=== PATIENT | female | born 1990 | race Caucasian/White ===

== ENCOUNTER → 2022-11-10 | Outpatient (CLI) | payer SELFPAY ==
[2022-11-10 13:48] LABS: hCG Titer Quant., Serum 11934 mIU/mL (1-3)
== END | disposition home or self-care (01) ==
PROVIDERS: Referring Provider Obstetrics & Gynecology; Visit Provider Obstetrics & Gynecology
DX: O20.0 Threatened abortion (principal)
CPT/HCPCS: 36415; 84702; 86850; 86900; 86901

== ENCOUNTER 2023-12-14 22:29 | Emergency (ER) | payer SELFPAY ==
[2023-12-14 22:29] VITALS: PULSE 115; RESP 20; TEMP 36.2; O2SAT 97; BMI 47.4
[2023-12-14 22:31] VITALS: BP 152/87
--- NOTE | 2023-12-14 22:39 | EX.ED.VIS.UR ---
HPI HPI - URI History of Present Illness Chief Complaint: Sore Throat Narrative Narrative: 33-year-old female past medical history of diabetes and hypertension presents with upper respiratory infection type symptoms that she has had since Thursday, 4 days ago. She had a fever, then developed cough, and runny nose along with sore throat. Right now she states that her throat hurts more when she swallows, and has her worst symptom. It even hurts when she tries to swallow. She may feel mildly short of breath as well. She and her boyfriend states that they tested her, she was negative for COVID. She denies any recent sick contacts however or known exposure to strep throat. ROS ROS ED ROS Narrative Constitutional: Positive fever, no chills. HEENT: Positive sore throat. No neck pain. No loss of vision. Positive rhinorrhea. Cardiovascular: No chest pain. No palpitations. No pedal edema. Respiratory: Positive cough, mild shortness of breath. Abdominal: No abdominal pain. No nausea. No vomiting. Genitourinary: No dysuria. No hematuria. Musculoskeletal: No myalgias. No arthralgias. Neurologic: No headaches. No dizziness. Positive lightheadedness. Skin: No rash. No change in color. Psychiatric: No depression. No anxiety. PFSH PFS Medical History Anxiety with depression Hypertension Type 2 diabetes mellitus Home Medications fluoxetine 20 mg capsule (Prozac) 20 mg PO DAILY 11/10/22 [History Last Taken Unknown] hydrochlorothiazide 25 mg tablet 25 mg PO DAILY 11/10/22 [History Last Taken Unknown] metformin 500 mg tablet 500 mg PO BID 11/10/22 [History Last Taken Unknown] desogestrel 0.15 mg-ethinyl estradiol 0.03 mg tablet (Apri) 1 tab PO QDAY #28 tabs 11/17/22 [Rx Last Taken Unknown] Allergy/AdvReac Type Severity Reaction Status Date / Time No Known Allergies Allergy Unverified 11/10/22 15:39 Family History Grandmother Diabetes Social History Smoking Status: Never smoker details: social substance use type: marijuana seatbelt use: always do you feel safe at home: Yes additional social history: [employer] - boyfriend EXAM Physical Exam Narrative Exam Narrative: Afebrile. Vital signs noted. Nontoxic-appearing. HEENT: Normocephalic. Atraumatic. PERRL, EOMI. Neck soft and supple. No point tenderness or step off. Airway patent. Mild pharyngeal erythema. No drooling or trismus. No noted tonsillar exudate. Shotty anterior lymphadenopathy, cervical. Cardiovascular: Positive tachycardia. No murmurs, rubs, or gallops appreciated. Respiratory: No tachypnea. Lungs clear to auscultation bilaterally. Moving a good amount of air. Gastrointestinal: Abdomen soft, nontender, with normoactive bowel sounds. No rebound or guarding. Neurological: Awake. Alert. Nonfocal, nonlateralizing. Ambulates without difficulty in the emergency department. Skin: No rash. Normal color. No pallor. Musculoskeletal: No pedal edema. Full range of motion extremities. Const Vital Signs: 12/14/23 22:29 12/14/23 22:31 Temperature 97.2 F L Temperature Source Temporal Pulse Rate 115 H Respiratory Rate 20 H Blood Pressure 152/87 H Blood Pressure Mean 108 Pulse Ox 97 Oxygen Delivery Method Room Air MDM MDM MDM Narrative Medical decision making narrative: In the differential diagnosis is strep pharyngitis versus viral syndrome from COVID, influenza, and/or RSV. He could have common infection as well. I do not feel that chest x-ray is indicated as her pulse ox is 97% on room air and her lungs are clear to auscultation bilaterally. She states her worst symptom is the sore throat. She was swabbed for strep, as well as COVID, influenza, and RSV. As she is negative for strep, I do not feel antibiotics are indicated. Her respiratory swab was reviewed she is positive for influenza B. As she has a sore throat and pharyngitis she was given 1 dose of Decadron 8 mg orally here. She will drink plenty of oral fluids. She was given a note to be off work for the next few days. I feel she can be discharged safely home with follow-up. Return instructions to the emergency department were reviewed. Disposition is discharged home in stable condition. Lab Data Attestation: I reviewed the patient's lab results. Labs: Strep negative. Positive for influenza B. Discharge Plan Triage Chief Complaint: Sore Throat ED Provider: Marc Echeverria Dx/Rx/DC Orders Clinical Impression: Viral syndrome, Pharyngitis, Influenza B Instructions: ED Influenza (Adult), ED Viral Syndrome (Adult) Prescriptions: No Action metformin 500 mg tablet 500 mg PO BID hydrochlorothiazide 25 mg tablet 25 mg PO DAILY fluoxetine [Prozac] 20 mg capsule 20 mg PO DAILY desogestrel-ethinyl estradiol [Apri] 0.15-0.03 mg tablet 1 tab PO QDAY Qty: 28 12RF Stand Alone Forms: ED Work / School Excuse Primary Care Provider: Care Physician,No Primary Referrals: Sami Goff MD [Med Staff - Tempering Kiln Tender] - 1 Week if not improving NOT,DEFINED [Non-Staff] - Activity Restrictions/Additional Instructions: Drink plenty of oral fluids.Drink plenty of oral fluids. Tylenol or ibuprofen as needed for pain. Disposition Disposition: Home, Self Care
[2023-12-14 23:59] VITALS: BP 131/99; PULSE 117; RESP 16; TEMP 37.9; O2SAT 94
[2023-12-14] MEDS: dexAMETHasone 4 MG Tablet 8 MG PO (23:59)
[2023-12-15 00:02] VITALS: BP 131/99; PULSE 117; RESP 16; TEMP 37.9; O2SAT 94
== END 2023-12-15 00:03 | disposition home or self-care (01) ==
PROVIDERS: Emergency Provider Emergency Medicine; Visit Provider Emergency Medicine
DX: J10.1 Influenza due to other identified influenza virus with other respiratory manifestations (principal); E11.9 Type 2 diabetes mellitus without complications; I10 Essential (primary) hypertension
CPT/HCPCS: 87631; 87651; 99282

== ENCOUNTER 2024-03-24 12:29 | Emergency (ER) | payer MEDICAID, SELFPAY ==
[2024-03-24 12:29] VITALS: BP 175/85; PULSE 91; RESP 14; TEMP 36.1; O2SAT 97; BMI 47.8
--- NOTE | 2024-03-24 12:57 | EX.ED.DYSGE1 ---
HPI <HOME Palmer - Last Filed: 03/24/24 15:43> History of Present Illness Chief Complaint: Chest Pain Narrative Narrative: Patient is a 33-year-old female with history of obesity, bipolar who is currently on antibiotics for a cyst to the front scalp presenting to the emergency department for chest pain, left arm pain, back pain. Patient has been ongoing for 2 weeks intermittently. Patient did see her doctor on Thursday, the doctor did put her on antibiotics and the new depression medication. Patient does see a analytic programmer for the cyst on 31 March. Patient has a cyst has been there for multiple years however over the last 3 months is getting bigger. Patient denies any fevers, does have subjective chills. Patient is asymptomatic at this time. She is here for evaluation. PFSH <HOME Palmer - Last Filed: 03/24/24 15:43> [facility] Medical History Anxiety with depression Hypertension Type 2 diabetes mellitus Home Medications ?Medication ?Instructions ?Recorded ?Last Taken ?Type fluoxetine 20 mg capsule (Prozac) 20 mg PO DAILY 11/10/22 Unknown History hydrochlorothiazide 25 mg tablet 25 mg PO DAILY 11/10/22 Unknown History metformin 500 mg tablet 500 mg PO BID 11/10/22 Unknown History desogestrel 0.15 mg-ethinyl 1 tab PO QDAY #28 tabs 11/17/22 Unknown Rx estradiol 0.03 mg tablet (Apri) Allergy/AdvReac Type Severity Reaction Status Date / Time No Known Allergies Allergy Verified 03/24/24 12:29 Family History Grandmother Diabetes Social History Smoking Status: Never smoker details: social substance use type: marijuana seatbelt use: always do you feel safe at home: Yes additional social history: [employer] - boyfriend ROS <HOME Palmer - Last Filed: 03/24/24 15:43> ROS ED ROS Narrative Constitutional: Negative for fever, weight loss, weakness. Positive for chills Eyes: Negative for vision loss, vision change, double vision ENT: Negative for any sore throat, ear pain, congestion Cardiovascular: Negative for any palpitations. Positive chest pain, tightness Respiratory: Negative for any cough, sputum production, hemoptysis, dyspnea, dyspnea on exertion, orthopnea Gastrointestinal: Negative for any abdominal pain, vomiting, diarrhea, constipation, blood in stool, blood in vomit. Positive for nausea : Negative for any urinary frequency, dysuria, retention, blood in urine Muscle skeletal: Negative for any neck pain, back pain Neurological: Negative for any headache, syncope, dizziness Skin: Negative for any rashes, itching, abrasions, lacerations Psychiatric: Negative for any depression, anxiety, stress, suicidal ideation, homicidal ideation Hematologic: Negative for any excessive bruising, easy bleeding EXAM <HOME Palmer - Last Filed: 03/24/24 15:43> Physical Exam Narrative Exam Narrative: Vital signs reviewed. HEET: Head normocephalic atraumatic, TMs clear bilaterally. Posterior pharynx is clear, moist mucous membranes. Nares clear bilaterally. Patient does have a cyst that is erythematous however there is no significant cellulitis. There is fluctuance. Neck: Supple with no lymphadenopathy or tenderness. No signs of meningismus. Cardiac: Regular rate and rhythm no murmurs gallops or rubs, equal peripheral pulses bilaterally. Respiratory: Lungs clear to auscultation bilaterally. No chest tenderness. Abdomen: Soft, nontender, nondistended. No abdominal bruit or pulsatile masses. No hepatosplenomegaly Extremities: No peripheral edema, no signs of gross trauma or deformity. Active full range of motion of all extremities. Neuro: Cranial nerves II through XII intact, no focal neurological deficits. Skin: Clean dry and intact with no rash, purpura, petechiae, vesicles or pustules. Backs/flank: No CVA tenderness, no midline spinal tenderness, no deformity. Psych: Normal mood and affect. No SI, HI or acute psychosis. Const Vital Signs: 03/24/24 12:29 03/24/24 13:33 03/24/24 14:29 Temperature 97 F L Temperature Source Temporal Pulse Rate 91 77 Respiratory Rate 14 22 H Respiratory Effort Short of Breath Blood Pressure 175/85 H 122/78 H Blood Pressure Mean 115 92 Pulse Ox 97 97 Oxygen Delivery Method Room Air Room Air 03/24/24 15:54 Temperature 97.3 F L Temperature Source Pulse Rate 88 Respiratory Rate 18 Respiratory Effort Blood Pressure 152/86 H Blood Pressure Mean 108 Pulse Ox 97 Oxygen Delivery Method Positive well nourished, well developed and obese General Appearance ED: well developed Nutritional Appearance: obese <Dr. Kushal Rosado DO - Last Filed: 03/24/24 20:19> Physical Exam Const Vital Signs: 03/24/24 12:29 03/24/24 13:33 03/24/24 14:29 Temperature 97 F L Temperature Source Temporal Pulse Rate 91 77 Respiratory Rate 14 22 H Respiratory Effort Short of Breath Blood Pressure 175/85 H 122/78 H Blood Pressure Mean 115 92 Pulse Ox 97 97 Oxygen Delivery Method Room Air Room Air 03/24/24 15:54 Temperature 97.3 F L Temperature Source Pulse Rate 88 Respiratory Rate 18 Respiratory Effort Blood Pressure 152/86 H Blood Pressure Mean 108 Pulse Ox 97 Oxygen Delivery Method MDM <HOME Palmer - Last Filed: 03/24/24 15:43> [facility] Lab Data Labs: Laboratory Results - last 24 hr 03/24/24 03/24/24 13:24 14:00 WBC 10.8 RBC 4.62 Hgb 11.8 L Hct 37.7 MCV 81.6 MCH 25.5 L MCHC 31.3 L RDW Std Deviation 42.0 RDW Coeff of Ebony 14.6 Plt Count 274 MPV 12.3 H Immature Gran % (Auto) 0.400 Neut % (Auto) 69.3 Lymph % (Auto) 24.1 Harper % (Auto) 4.5 Eos % (Auto) 1.1 Baso % (Auto) 0.6 Absolute Neuts (auto) 7.5 Absolute Lymphs (auto) 2.59 Nucleated RBC % 0 Sodium 136 Potassium 3.5 Chloride 102 Carbon Dioxide 26.0 Anion Gap 8 BUN 9 Creatinine 0.65 Estim Creat Clear Calc 173.70 Est GFR (MDRD) Af Amer 135 Est GFR (MDRD) Non-Af 111 BUN/Creatinine Ratio 13.8 Glucose 116 H Calcium 10.0 Total Bilirubin 0.30 AST 13 L ALT 23 Alkaline Phosphatase 107 Troponin I High Sens < 3 L Total Protein 8.3 H Albumin 3.3 Globulin 5.0 H Albumin/Globulin Ratio 0.7 L Lipase 32 Urine Color Yellow Urine Clarity Sl. Cloudy Urine pH 6.0 Ur Specific [place] 1.020 Urine Protein 30 H Urine Glucose (UA) Normal Urine Ketones 5 H Urine Occult Blood 250 H Urine Nitrite Negative Urine Bilirubin Negative Urine Urobilinogen Normal Ur Leukocyte Esterase Negative Urine RBC 50-100 SEEN Urine WBC 0 SEEN Ur Squamous Epith Cells 0-5 SEEN Urine Bacteria 0 SEEN Urine Mucus 0 SEEN Urine Test Negative Radiography Diagnostic Testing: Clinical Impression(s) from Imaging Studies Chest X-Ray 03/24/24 13:32 IMPRESSION: Normal x-ray examination of the chest. Electronically Signed: Zachary Stuart MD at 13:47 EDT , EKG Normal sinus rhythm: Attestation: I personally reviewed and interpreted this EKG as follows: Interpretation: Sinus Rhythm Comments: Normal sinus rhythm, rate of 80 bpm, VA 142 ms, QRS duration 98 ms, no acute ST elevation, no acute infarct noted. Treatment and Re-Evaluation :: Differential diagnosis includes however is not limited to: Acute cholecystitis, cholelithiasis, choledocholithiasis, ACS, OR, anxiety Patient appears to be in no obvious distress vital signs are stable. Presenting to the emergency department with complaints of chest pain, left arm pain, diaphoresis after eating. Patient that she had 2-3 episodes of this. She is here for evaluation. Patient received cardiac workup, as well as upper belly labs. IV fluids given. Asymptomatic at this time. Patient's laboratory values showed normal CBC, patient's chemistries were unremarkable, troponin was negative, lipase was negative. Patient's chest x-ray shows no acute process. Urinalysis did show 50-100 red blood cells however patient is on her menstrual cycle. At this time, do not believe there is any acute surgical emergency, is no evidence of any ACS or OR. I do believe the patient be stable to be discharged to follow-up outpatient. She is agreeable with the plan, all questions were answered, patient stable for discharge. <Dr. Kushal Rosado, DO - Last Filed: 03/24/24 20:19> [facility] Lab Data Labs: Laboratory Results - last 24 hr 03/24/24 03/24/24 13:24 14:00 WBC 10.8 RBC 4.62 Hgb 11.8 L Hct 37.7 MCV 81.6 MCH 25.5 L MCHC 31.3 L RDW Std Deviation 42.0 RDW Coeff of Ebony 14.6 Plt Count 274 MPV 12.3 H Immature Gran % (Auto) 0.400 Neut % (Auto) 69.3 Lymph % (Auto) 24.1 Harper % (Auto) 4.5 Eos % (Auto) 1.1 Baso % (Auto) 0.6 Absolute Neuts (auto) 7.5 Absolute Lymphs (auto) 2.59 Nucleated RBC % 0 Sodium 136 Potassium 3.5 Chloride 102 Carbon Dioxide 26.0 Anion Gap 8 BUN 9 Creatinine 0.65 Estim Creat Clear Calc 173.70 Est GFR (MDRD) Af Amer 135 Est GFR (MDRD) Non-Af 111 BUN/Creatinine Ratio 13.8 Glucose 116 H Calcium 10.0 Total Bilirubin 0.30 AST 13 L ALT 23 Alkaline Phosphatase 107 Troponin I High Sens < 3 L Total Protein 8.3 H Albumin 3.3 Globulin 5.0 H Albumin/Globulin Ratio 0.7 L Lipase 32 Urine Color Yellow Urine Clarity Sl. Cloudy Urine pH 6.0 Ur Specific [place] 1.020 Urine Protein 30 H Urine Glucose (UA) Normal Urine Ketones 5 H Urine Occult Blood 250 H Urine Nitrite Negative Urine Bilirubin Negative Urine Urobilinogen Normal Ur Leukocyte Esterase Negative Urine RBC 50-100 SEEN Urine WBC 0 SEEN Ur Squamous Epith Cells 0-5 SEEN Urine Bacteria 0 SEEN Urine Mucus 0 SEEN Urine Test Negative Radiography Diagnostic Testing: Clinical Impression(s) from Imaging Studies Chest X-Ray 03/24/24 13:32 IMPRESSION: Normal x-ray examination of the chest. Electronically Signed: Zachary Stuart MD at 13:47 EDT , Treatment and Re-Evaluation :: Differential diagnosis includes however is not limited to: Acute cholecystitis, cholelithiasis, choledocholithiasis, ACS, OR, anxiety Patient appears to be in no obvious distress vital signs are stable. Presenting to the emergency department with complaints of chest pain, left arm pain, diaphoresis after eating. Patient that she had 2-3 episodes of this. She is here for evaluation. Patient received cardiac workup, as well as upper belly labs. IV fluids given. Asymptomatic at this time. Patient's laboratory values showed normal CBC, patient's chemistries were unremarkable, troponin was negative, lipase was negative. Patient's chest x-ray shows no acute process. Urinalysis did show 50-100 red blood cells however patient is on her menstrual cycle. At this time, do not believe there is any acute surgical emergency, is no evidence of any ACS or OR. I do believe the patient be stable to be discharged to follow-up outpatient. She is agreeable with the plan, all questions were answered, patient stable for discharge. This patient was seen with a PA/AUTOMATIC SPINNING LATHE OPERATOR Individually assessed they patient including history and physical. I have reviewed everything on the chart that is available and agree with the documentation provided by the PA/AUTOMATIC SPINNING LATHE OPERATOR including discussion about the assessment, treatment plan, discussion, and return precautions. Patient presenting with chest pain and arm pain as well as diaphoresis. She states her pain is mostly on the right lower back. It is not necessarily associated with her chest pain or her sweating. No history of kidney stones. Differential as above. Blood work all returned unremarkable except for urinalysis 1500 red blood cells however the patient states she is on her menstrual cycle. Chest x-ray interpreted by myself shows no acute cardiopulmonary process. EKG again interpreted by myself shows a sinus rhythm at 80 bpm without sign of ischemic change or dysrhythmia. Given the patient's workup is ultimately negative I feel she is safe for discharge home. Return precautions discussed Discharge Plan Triage Chief Complaint: Chest Pain ED Midlevel Provider: Romain Koehler ED Provider: Kushal Rosado Dx/Rx/DC Orders Clinical Impression: Chest pain, Acute lumbar myofascial strain, Cyst Instructions: ED Back Sprain/Strain, ED Chest Pain, Uncertain Cause Prescriptions: No Action metformin 500 mg tablet 500 mg PO BID hydrochlorothiazide 25 mg tablet 25 mg PO DAILY fluoxetine [Prozac] 20 mg capsule 20 mg PO DAILY desogestrel-ethinyl estradiol [Apri] 0.15-0.03 mg tablet 1 tab PO QDAY Qty: 28 12RF Primary Care Provider: Care Physician,No Primary Referrals: Care Physician,No Primary [Primary Care Provider] - Activity Restrictions/Additional Instructions: Please follow-up outpatient. Print Language: Japanese Disposition Disposition: Home, Self Care Discharge Date/Time: 03/24/24 15:55
--- NOTE | 2024-03-24 13:32 | RAD_ITS ---
STUDY: X-RAY CHEST REASON FOR EXAM: Female, 33 years old. Chest pressure and left shoulder pain. TECHNIQUE: PA and lateral views of the chest. COMPARISON: None. FINDINGS: EKG electrodes are seen. The lungs are clear and expanded. There is no demonstrated pleural abnormality. Normal size heart. Normal mediastinum and bianca. Normal visualized pulmonary arteries. Normal visualized aortic arch and descending thoracic aorta. Normal visualized thoracic spine. Normal visualized ribs, clavicles, and shoulders. There is no demonstrated abnormality of the visualized soft tissue structures of the upper abdomen. RAD/Chest PA and Lateral IMPRESSION: Normal x-ray examination of the chest. Electronically Signed: Zachary Stuart MD at 13:47 EDT ,
--- NOTE | 2024-03-24 13:45 | NURSING ---
NO OLD EKGS
[2024-03-24] MEDS: 0.9% Normal Saline (1000mL) 1,000 ML 999 ML IV (14:13)
[2024-03-24 14:17] LABS: Bacteria 0 SEEN /hpf (None Seen); Mucous, Urine 0 SEEN /hpf (<or=2+); White Blood Cells 0 SEEN /hpf (0-5)
[2024-03-24 14:23] LABS: Absolute Lymphocyte Count 2.59 X10^3/uL (0.83-4.51); Absolute Neutrophil Count 7.5 X10^3/uL (2.0-7.7); Basophil# 0.06 X10^3/uL; Basophil% 0.6 % (0-1); Eosinophil# 0.12 X10^3/uL; Eosinophils% 1.1 % (0-5); Hematocrit 37.7 % (37-47); Hemoglobin 11.8 g/dL (12.0-15.0); Lymphocyte # 2.59 X10^3/ul (0.83-4.51); Lymphocyte % 24.1 % (19-41); Mean Corp Hgb Conc 31.3 g/dL (32-36); Mean Corpuscular Hgb 25.5 pg (27.0-32.0); Mean Corpuscular Volume 81.6 fL (81-99); Mean Platelet Vol. 12.3 fl (6.2-12.0); Monocyte# 0.48 X10^3/uL; Monocyte% 4.5 % (0-10); NRBC Flagged by Analyzer 0 % (0-5); Neutrophil # 7.46 X10^3/uL (2.7-7.7); Neutrophil % 69.3 % (47-70); Platelet Count 274 K/mm3 (150-450); RBC Distribution Width CV 14.6 % (11.6-14.6); Red Blood Count 4.62 M/mm3 (4.2-5.4); White Blood Count 10.8 K/mm3 (4.4-11.0)
[2024-03-24 14:24] LABS: Color, Urine Yellow (Yellow); Glucose, Dipstick Normal (Normal); Ketone-Dipstick 5 mg/dl (Negative); Leukocyte Esterase-Dipstick Negative /ul (Negative); Nitrite-Dipstick Negative (Negative); Occult Blood-Urine 250 /ul (Negative); Protein-Dipstick 30 mg/dl (Negative); Urine Bilirubin Dipstick Negative (Negative); Urine Clarity Sl. Cloudy (Clear); Urine Urobilinogen Normal (Normal)
[2024-03-24 14:29] VITALS: BP 122/78; PULSE 77; RESP 22; O2SAT 97
[2024-03-24 14:32] LABS: Red Blood Cells-Urine 50-100 SEEN /hpf (0-5); Squamous Epithelial Cells - UA 0-5 SEEN /hpf (5-10)
[2024-03-24 14:33] LABS: Internal QC Validated? YES +Cl - CLEAR BKGD; Pregnancy, Urine Negative Negative
[2024-03-24 14:36] LABS: ALB/GLOB Ratio 0.7 RATIO (0.9-2.4); AST(SGOT) 13 U/L (15-37); Alanine Aminotransfer ALT/SGPT 23 U/L (13-56); Albumin, Serum 3.3 g/dL (3.2-5.0); Alkaline Phosphatase 107 U/L (45-117); Anion Gap 8 (5-15); BUN 9 mg/dL (7-18); BUN/Creat Ratio 13.8 RATIO (10-20); Chloride 102 mmol/L (98-107); Creatinine, Serum 0.65 mg/dL (0.55-1.02); EST Glomerular Filtration Rate 111 mL/min (>60); Est Glom Filt Rate - Afr Amer 135 mL/min (>60); Glucose 116 mg/dL (74-106); Lipase 32 U/L (13-75); Potassium 3.5 mmol/L (3.5-5.1); Protein, Total 8.3 g/dL (6.4-8.2); Sodium Level 136 mmol/L (136-145); Troponin-I HS < 3 pg/mL (3.0-54.0)
[2024-03-24 15:54] VITALS: BP 152/86; PULSE 88; RESP 18; TEMP 36.3; O2SAT 97
== END 2024-03-24 15:55 | disposition home or self-care (01) ==
PROVIDERS: Nurse Practitioner; Emergency Provider Student in an Organized Health Care Education/Training Program; Visit Provider Student in an Organized Health Care Education/Training Program
DX: R07.9 Chest pain, unspecified (principal); F31.9 Bipolar disorder, unspecified; E11.9 Type 2 diabetes mellitus without complications; E66.9 Obesity, unspecified; S39.012A Strain of muscle, fascia and tendon of lower back, initial encounter; L72.9 Follicular cyst of the skin and subcutaneous tissue, unspecified; Z79.899 Other long term (current) drug therapy; I10 Essential (primary) hypertension; X58.XXXA Exposure to other specified factors, initial encounter
CPT/HCPCS: 71046; 80053; 81001; 81025; 83690; 84484; 85025; 93005; 96360; 99283; A4216

== ENCOUNTER 2024-11-27 18:41 | Emergency (ER) | payer MEDICAID, SELFPAY ==
[2024-11-27 18:43] VITALS: BP 151/87; PULSE 96; RESP 18; TEMP 35.8; O2SAT 100; BMI 48.4
== END 2024-11-27 19:35 | disposition left against medical advice (07) ==
LOC: ED 19:57
DX: Z53.21 Procedure and treatment not carried out due to patient leaving prior to being seen by health care provider (principal)

== ENCOUNTER 2024-11-29 16:30 | Emergency (ER) | payer SELFPAY ==
[2024-11-29 16:35] VITALS: BP 131/96; PULSE 114; RESP 18; TEMP 37.6; O2SAT 98; BMI 48.0
--- NOTE | 2024-11-29 19:30 | RAD_ITS ---
PROCEDURE: CHEST 1 VIEW (PORTABLE) REASON FOR EXAM: 34-year-old female, stroke. Dizziness, pressure in back of head and neck. TECHNIQUE: Frontal view of the chest. COMPARISON: Prior chest radiograph 03/24/2024. FINDINGS: The heart size is normal. The lungs are clear. The bones are unremarkable. RAD/Chest 1 View (Portable) IMPRESSION: NEGATIVE CHEST. Reading Location: [id number]
[2024-11-29 21:11] VITALS: O2SAT 98
[2024-11-29 21:14] VITALS: BP 129/87; BP 134/91; BP 154/92; PULSE 102; PULSE 113; PULSE 124
[2024-11-29 21:19] LABS: Absolute Lymphocyte Count 4.02 X10^3/uL (0.83-4.51); Absolute Neutrophil Count 9.2 X10^3/uL (2.0-7.7); Basophil# 0.07 X10^3/uL; Basophil% 0.5 % (0-1); Eosinophil# 0.22 X10^3/uL; Eosinophils% 1.6 % (0-5); Hematocrit 36.2 % (37-47); Lymphocyte # 4.02 X10^3/ul (0.83-4.51); Lymphocyte % 28.5 % (19-41); Mean Corp Hgb Conc 33.1 g/dL (32-36); Mean Corpuscular Hgb 27.2 pg (27.0-32.0); Mean Corpuscular Volume 82.1 fL (81-99); Mean Platelet Vol. 11.8 fl (6.2-12.0); Monocyte# 0.59 X10^3/uL; Monocyte% 4.2 % (0-10); NRBC Flagged by Analyzer 0 % (0-5); Neutrophil # 9.16 X10^3/uL (2.7-7.7); Neutrophil % 64.7 % (47-70); Platelet Count 292 K/mm3 (150-450); RBC Distribution Width CV 14.3 % (11.6-14.6); RBC Distribution Width SD 42.1 fl (35.1-43.9); Red Blood Count 4.41 M/mm3 (4.2-5.4); White Blood Count 14.1 K/mm3 (4.4-11.0)
--- NOTE | 2024-11-29 21:29 | EDS_ITS ---
HPI History of Present Illness Chief Complaint: Dizziness Detail of Chief Complaint: Intermittent vertigo 2 days ago, yesterday and today Informant: patient Onset/Context/Timing Onset: Days Context: Sudden Onset Timing: Intermittent Quality: Maximum duration 10 minutes Location: Spinning sensation with change in position Current Severity: Gone Maximum Severity: Severe Worsened by: Rising from supine position Relieved by: Remaining still Associated Symptoms Associated Symptoms: Nausea, diaphoresis Narrative Narrative: Patient is a 34-year-old woman. She has history of polycystic ovarian syndrome. BMI is 48.0. Patient appears in no distress. Vital signs remarkable for slightly elevated blood pressure and heart rate. She denies headache. Denies double vision blurred vision loss of vision. She denies ringing or ears decreased hearing. Denies trouble with speech or swallowing. She denies paresthesia, anesthesia or motor weakness presently. She did have tingling in her hands and head. She denied falling. She denies cardiac or respiratory symptoms. Prior similar symptoms: No Recent Illness/Hospitalization: No [facility] Medical History Binge eating disorder ADHD Hypertension Type 2 diabetes mellitus Anxiety with depression Home Medications ?Medication ?Instructions ?Recorded ?Last Taken ?Type hydrochlorothiazide 25 mg tablet 25 mg PO DAILY Unknown History metformin 500 mg tablet 500 mg PO BID 11/10/22 Unkno wn History desogestrel 0.15 mg-ethinyl 1 tab PO QDAY #28 tabs Unknown Rx estradiol 0.03 mg tablet (Apri) lisinopril 10 mg tablet 10 mg PO DAILY 11/29/24 Unkn own History Allergy/AdvReac Type Severity Reaction Status Date / Time No Known Allergies Allergy Verified 11/29/24 16:34 Family History Grandmother Diabetes Social History Smoking Status: Never smoker details: social substance use type: marijuana seatbelt use: always do you feel safe at home: Yes additional social history: [employer] - boyfriend ROS ROS ED Constitutional Constitutional ED: Denies chills, fever(s), subjective, sweats or weight loss Eyes Eyes: Denies blurry vision, change in vision or diplopia ENT ENT ED: Denies ear pain, rhinorrhea or sore throat Cardiovascular Cardiovascular: Denies chest pain or palpitations Respiratory/Chest Respiratory/Chest: Denies cough, dyspnea or dyspnea on exertion Gastrointestinal Gastrointestinal: Denies abdominal pain, diarrhea, melena or vomiting Genitourinary Genitourinary ED: Denies dysuria, hematuria or urinary frequency Musculoskeletal Musculoskeletal: Denies arthralgias or myalgias Integumentary Denies rash Neurologic Neurologic: Reports other Details: Vertigo ; Denies headache(s), paresthesias or weakness Endocrine Endocrinology: Denies cold intolerance or heat intolerance Hematologic/Lymphatic Hematologic/Lymphatic: Reports systems reviewed and no addt'l complaints, except as documented EXAM Physical Exam Const Vital Signs: 11/29/24 16:35 11/29/24 21:11 11/29/24 21:14 Temperature 99.6 F H Temperature Source Oral Pulse Rate 114 H Pulse Rate [Lying] 102 H Pulse Rate [Sitting (for 1 minute prior to obtaining)] 113 H Pulse Rate [Standing (for 1 minute prior to obtaining)] 124 H Respiratory Rate 18 Respiratory Effort Respiratory Pattern Blood Pressure 131/96 H Blood Pressure [Lying] 154/92 H Blood Pressure [Sitting (for 1 minute prior to obtaining)] 129/87 H Blood Pressure [Standing (for 1 minute prior to obtaining)] 134/91 H Blood Pressure Mean 107 Blood Pressure Mean [Lying] 112 Blood Pressure Mean [Sitting (for 1 minute prior to obtaining)] 101 Blood Pressure Mean [Standing (for 1 minute prior to obtaining)] 105 Pulse Ox 98 98 Oxygen Delivery Method Room Air Room Air 11/29/24 21:20 11/29/24 22:00 Temperature Temperature Source Pulse Rate 106 H Pulse Rate [Lying] Pulse Rate [Sitting (for 1 minute prior to obtaining)] Pulse Rate [Standing (for 1 minute prior to obtaining)] Respiratory Rate 18 Respiratory Effort Normal Non-Labored Short of Breath Labored Respiratory Pattern Tachypnea Blood Pressure 130/76 H Blood Pressure [Lying] Blood Pressure [Sitting (for 1 minute prior to obtaining)] Blood Pressure [Standing (for 1 minute prior to obtaining)] Blood Pressure Mean 94 Blood Pressure Mean [Lying] Blood Pressure Mean [Sitting (for 1 minute prior to obtaining)] Blood Pressure Mean [Standing (for 1 minute prior to obtaining)] Pulse Ox 98 Oxygen Delivery Method Room Air Vital signs noted. Orthostatic vital signs negative. Positive well nourished and well developed Constitutional Narrative: Patient is slightly diaphoretic. BMI is 48. General Appearance ED: well developed and NAD; Negative for pallor HEENT HEENT Narrative: Head is atraumatic normocephalic. Ears normal. Nares patent. Posterior pharynx is normal. Eyes PERRL and EOMs intact bilaterally Eyes Narrative: There is no nystagmus. General Eye ED: Negative for pale conjunctiva or scleral icterus Neck no lymphadenopathy, supple and no JVD Resp normal respiratory effort and clear to auscultation bilaterally Cardio regular rhythm, S1 normal heart sound, S2 normal heart sound and no murmurs Rate: tachycardic GI normal to inspection, nondistended, normoactive bowel sounds, non-tender, non- distended and no masses GI Narrative: Unable to assess for hepatosplenomegaly due to body habitus Extremity normal to inspection Extremity Narrative: There is no clubbing or cyanosis. General Extremety ED: Negative for edema or tenderness General Extremity: Negative for edema Neuro oriented x3, CN's II-XII intact bilaterally and no sensory deficits noted Neuro Narrative: There is no dysmetria. Romberg with eyes open and close negative. Gait normal. Tandem gait normal. Able to walk on heels and toes. The eye askew test was negative. Joaquim-Hallpike maneuver was positive with head to the left. Sensorium / Orientation: alert Motor Exam: strength 5/5 throughout Psych mental status grossly normal Skin no rashes or lesions noted, no wounds and skin turgor normal Skin Narrative: Patient is slightly diaphoretic. General Skin Exam: elasticity normal; Negative for jaundice or pallor MDM MDM MDM Narrative Medical decision making narrative: Nurse protocol orders were initiated.This included a basic metabolic panel, CBC. A single view chest x-ray was obtained as well as an EKG. In light of patient's history of acute vertigo with change in position the last 5 to 10 minutes with no other symptoms normal neurologic exam and a positive Newton- Hallpike maneuver my opinion patient has paroxysmal benign positional vertigo. In my opinion there is no need for advanced imaging. Lab Data Lab results narrative: CBC reveals slightly elevated white count with normal differential. White count was 14.1. Labs: Laboratory Results - last 24 hr 11/29/24 21:10 WBC 14.1 H RBC 4.41 Hgb 12.0 Hct 36.2 L MCV 82.1 MCH 27.2 MCHC 33.1 RDW Std Deviation 42.1 RDW Coeff of Ebony 14.3 Plt Count 292 MPV 11.8 Immature Gran % (Auto) 0.500 Neut % (Auto) 64.7 Lymph % (Auto) 28.5 [place] % (Auto) 4.2 Eos % (Auto) 1.6 Baso % (Auto) 0.5 Absolute Neuts (auto) 9.2 H Absolute Lymphs (auto) 4.02 Nucleated RBC % 0 PT 13.8 INR 1.0 APTT 27.6 Sodium 137 Potassium 3.4 L Chloride 101 Carbon Dioxide 25.0 Anion Gap 11 BUN 8 Creatinine 0.70 Estim Creat Clear Calc 160.17 Est GFR (MDRD) Af Amer 123 Est GFR (MDRD) Non-Af 101 BUN/Creatinine Ratio 11.4 Glucose 190 H Calcium 9.9 Radiography Chest X-Ray - ED: 1 View and Read by ED Physician (Single view chest x-ray reveals no cardiac silhouette and size. Lung parenchyma is normal. Osseous structures unremarkable) Diagnostic Testing: Clinical Impression(s) from Imaging Studies Chest X-Ray 11/29/24 19:30 IMPRESSION: NEGATIVE CHEST. Reading Location: [facility] Treatment and Re-Evaluation :: Modified Chasity maneuver was performed. Patient's symptoms resolved. Plan is to discharge to home Discharge Plan Triage Chief Complaint: Dizziness ED Provider: Aj Gannon Dx/Rx/DC Orders Clinical Impression: Benign paroxysmal positional vertigo of left ear, Polycystic ovarian syndrome, Sinus tachycardia, Elevated blood pressure reading with diagnosis of hypertension Instructions: ED BPV Vertigo Prescriptions: No Action metformin 500 mg tablet 500 mg PO BID hydrochlorothiazide 25 mg tablet 25 mg PO DAILY desogestrel-ethinyl estradiol [Apri] 0.15-0.03 mg tablet 1 tab PO QDAY Qty: 28 12RF lisinopril 10 mg tablet 10 mg PO DAILY Primary Care Provider: EVER VARGAS Referrals: [facility] [Provider Group] - As Needed Care Physician,No Primary [Non-Staff] - Print Language: Yoruba Disposition Disposition: Home, Self Care
[2024-11-29 21:36] LABS: Anion Gap 11 (5-15); BUN 8 mg/dL (7-18); BUN/Creat Ratio 11.4 RATIO (10-20); Calcium,Total 9.9 mg/dL (8.5-10.1); Chloride 101 mmol/L (98-107); EST Glomerular Filtration Rate 101 mL/min (>60); Est Glom Filt Rate - Afr Amer 123 mL/min (>60); Estimated Creatinine Clearance 160.17 ml/min; Glucose 190 mg/dL (74-106); Potassium 3.4 mmol/L (3.5-5.1); Sodium Level 137 mmol/L (136-145)
[2024-11-29] MEDS: Ondansetron 4 MG/2 ML Vial IV (21:37)
[2024-11-29 21:46] LABS: Prothrombin Time (Protime)PT. 13.8 SECONDS (11.7-14.9)
[2024-11-29 21:47] LABS: Partial Thromboplast Time 27.6 Seconds (24.1-36.2)
[2024-11-29 22:00] VITALS: BP 130/76; PULSE 106; RESP 18; O2SAT 98
[2024-11-29 22:57] VITALS: BP 115/68; PULSE 76; RESP 18; TEMP 36.8; O2SAT 100
== END 2024-11-29 22:58 | disposition home or self-care (01) ==
PROVIDERS: Emergency Provider Emergency Medicine; Visit Provider Emergency Medicine
DX: H81.12 Benign paroxysmal vertigo, left ear (principal); E11.9 Type 2 diabetes mellitus without complications; E28.2 Polycystic ovarian syndrome; I10 Essential (primary) hypertension; R00.0 Tachycardia, unspecified; Z79.899 Other long term (current) drug therapy
CPT/HCPCS: 71045; 80048; 85025; 85610; 85730; 96374; 99285; A4216; J2405